=== PATIENT | male | born 1985 | race Asian ===

== ENCOUNTER → 2018-02-09 | Outpatient (CLI) | payer OTHER ==
--- NOTE | 2018-02-09 17:15 | ECHOCARDIOGRAM REPORT ---
*NOTICE TO RECEIVING [employer] This information is strictly Confidential and protected under [place] law. [place] law prohibits you from making any further disclosure of this information unless further disclosure is expressly permitted by the written consent of the person to whom it pertains or is authorized by law. A general authorization for the release of medical or other information is not sufficient for this purpose. Hospital accepts no responsibility if the information is made available to any other person, INCLUDING THE PATIENT. Interpretation Summary * Name: MIREYA MYERS Study Date: 02/09/2018 12:48 PM * Patient Location: [facility] HR: 106 * : 1985 (M/d/yyyy) Gender: Male Height: 69 in * Age: 32 yrs Ethnicity: Weight: 195 lb * Ordering Physician: Rogers Lebron * Referring Physician: Rogers Lebron * Performed By: Sujata Rios RDCS * * Reason For Study: LEFT VENTRICULAR HPYERTROPHY BY EKG * BSA: 2.0 m2 * -- Conclusions -- * There is mild asymmetric left ventricular hypertrophy. * Left ventricular systolic function is normal. * Grade I diastolic dysfunction, (abnormal relaxation pattern). * No significant valvular disease Procedure Details * A complete two-dimensional transthoracic echocardiogram was performed (2D, M-mode, Doppler and color flow Doppler). Left Ventricle * The left ventricle is normal in size. * There is mild asymmetric left ventricular hypertrophy. * The basal septum is thickened and angulated consistent with sigmoid septum. * Ejection Fraction = 65-70%. * Left ventricular systolic function is normal. * Grade I diastolic dysfunction, (abnormal relaxation pattern). * The left ventricular wall motion is normal. Right Ventricle * The right ventricle is normal in size and function. * The right ventricular systolic function is normal as assessed by tricuspid annular plane systolic excursion (TAPSE) (normal >1.5 cm). Atria * The left atrial size is normal. * Right atrial size is normal. Mitral Valve * The mitral valve is grossly normal. * Significant mitral regurgitation is absent. Tricuspid Valve * The tricuspid valve is not well visualized, but is grossly normal. * Significant tricuspid regurgitation is absent. Aortic Valve * The aortic valve is normal in structure and function. * The aortic valve is trileaflet. * No hemodynamically significant valvular aortic stenosis. * There is no significant aortic regurgitation. Pulmonic Valve * The pulmonic valve is not well seen, but is grossly normal. Pericardium/Pleural * There is no pericardial effusion. MMode 2D Measurements and Calculations IVSd 1.6 cm IVSs 2.0 cm LVIDd 4.2 cm LVIDs 2.5 cm LVPWd 0.88 cm LVPWs 1.7 cm IVS/LVPW 1.8 FS 40.3 % EDV(Teich) 78.2 ml ESV(Teich) 22.4 ml EF(Teich) 71.3 % EDV(cubed) 73.6 ml ESV(cubed) 15.7 ml EF(cubed) 78.7 % % IVS thick 26.5 % % LVPW thick 90.3 % LV mass(C)d 187.3 grams LV mass(C)dI 91.6 grams/m\S\2 LV mass(C)s 187.1 grams LV mass(C)sI 91.6 grams/m\S\2 SV(Teich) 55.8 ml SI(Teich) 27.3 ml/m\S\2 SV(cubed) 57.9 ml SI(cubed) 28.3 ml/m\S\2 ACS 2.1 cm LA dimension 3.0 cm asc Aorta Diam 2.7 cm LVOT diam 2.0 cm LVOT area 3.1 cm\S\2 LVAd ap4 35.0 cm\S\2 LVLd ap4 8.7 cm EDV(MOD-sp4) 111.9 ml EDV(sp4-el) 119.5 ml LVAs ap4 16.7 cm\S\2 LVLs ap4 7.4 cm ESV(MOD-sp4) 32.9 ml ESV(sp4-el) 32.0 ml EF(MOD-sp4) 70.6 % EF(sp4-el) 73.3 % LVAd ap2 30.4 cm\S\2 LVLd ap2 8.5 cm EDV(MOD-sp2) 87.8 ml EDV(sp2-el) 91.9 ml LVAs ap2 14.7 cm\S\2 LVLs ap2 6.8 cm ESV(MOD-sp2) 26.1 ml ESV(sp2-el) 26.8 ml EF(MOD-sp2) 70.3 % EF(sp2-el) 70.9 % LVLd %diff -1.95 % EDV(MOD-bp) 100.7 ml LVLs %diff -7.99 % ESV(MOD-bp) 30.0 ml EF(MOD-bp) 70.3 % SV(MOD-sp4) 79.0 ml SI(MOD-sp4) 38.7 ml/m\S\2 SV(MOD-sp2) 61.7 ml SI(MOD-sp2) 30.2 ml/m\S\2 SV(MOD-bp) 70.8 ml SI(MOD-bp) 34.6 ml/m\S\2 SV(sp4-el) 87.5 ml SI(sp4-el) 42.8 ml/m\S\2 SV(sp2-el) 65.1 ml SI(sp2-el) 31.9 ml/m\S\2 Doppler Measurements and Calculations MV E max benedict 68.5 cm/sec MV A max ebnedict 88.4 cm/sec MV E/A 0.77 MV dec time 0.19 sec Ao V2 max 135.5 cm/sec Ao max PG 7.3 mmHg Ao max PG (full) -0.89 mmHg MIL(V,A) 3.3 cm\S\2 MIL(V,D) 3.3 cm\S\2 LV V1 max PG 8.2 mmHg LV V1 max 143.4 cm/sec PA V2 max 94.9 cm/sec PA max PG 3.6 mmHg
== END | disposition home or self-care (01) ==
LOC: C.CPL 12:33
PROVIDERS: ATTEND Emergency Medicine
DX: I51.7 Cardiomegaly (principal)